=== PATIENT | female | born 1985 | race Two or more races ===

== ENCOUNTER → 2019-07-26 | Outpatient (CLI) | payer OTHER ==
[~2019-07-26] MED LIST: DOCU-131 PO; IBUP-1223 PO
== END | disposition home or self-care (01) ==
LOC: CVU 06:55
PROVIDERS: ATTEND Internal Medicine Cardiovascular Disease
DX: R07.89 Other chest pain (principal); R42 Dizziness and giddiness
CPT/HCPCS: 93306

== ENCOUNTER 2020-08-14 11:31 | Inpatient (IN) | payer OTHER ==
[~2020-08-14] VITALS: Ht 170.2 cm; Wt 72.6 kg
[2020-08-14] MEDS ORDERED: BETAMETHASONE 6 MG/ML, 5ML IM ONE (11:41)
[2020-08-14 11:56] LABS: BASOPHILS % (AUTO) 0 % (0-1); EOSINOPHILS % (AUTO) 1 % (1-7); LYMPHOCYTES % (AUTO) 10 % (22-44); MEAN CORPUSCULAR HEMOGLOBIN 34.1 pg (27.0-34.8); MEAN CORPUSCULAR HGB CONC 34.7 g/dL (32.4-35.8); MEAN PLATELET VOLUME 9.1 fL (7.4-10.4); MONOCYTES % (AUTO) 4 % (2-9); NEUTROPHILS % (AUTO) 86 % (42-75); PLATELET COUNT 224 x10^3/uL (130-400); RED BLOOD COUNT 3.94 x10^6/uL (3.82-5.3); RED CELL DISTRIBUTION WIDTH 12.7 % (9.6-15.2)
[2020-08-14 11:58] LABS: MD NO
[2020-08-14 12:08] LABS: ALBUMIN 2.7 g/dL (3.4-5.0); ANION GAP 7 mmol/L (5-15); CALCIUM 8.6 mg/dL (8.5-10.1); CHLORIDE 108 mmol/L (98-107)
[2020-08-14 12:12] LABS: ALANINE AMINOTRANSFERASE 18 U/L (12-78); ALKALINE PHOSPHATASE 90 U/L (45-117); BILIRUBIN,TOTAL 0.2 mg/dL (0.2-1.0); CREATININE 0.74 mg/dL (0.55-1.02); TOTAL PROTEIN 6.7 g/dL (6.4-8.2)
[2020-08-14] MEDS ORDERED: OXYTOCIN 30U/ 0.9% NaCL 500ML 500 ML IV ONE (13:30)
[2020-08-14] MEDS ORDERED: TERBUTALINE 1 MG/ML, 1ML IVPush PRN (13:30)
[2020-08-14] MEDS ORDERED: TERBUTALINE 1 MG/ML, 1ML SQ PRN (13:30)
[2020-08-14] MEDS: LACTATED RINGERS 1,000 ML IV SCH (13:40)
[2020-08-14] MEDS: BETAMETHASONE 6 MG/ML, 5ML IM SCH (13:40)
[2020-08-14] MEDS ORDERED: AMPICILLIN 2 GM in SODIUM CHLORIDE 0.9% 100 ML IVPB ONE (15:00)
[2020-08-14] MEDS: AZITHROMYCIN 500 MG in SODIUM CHLORIDE 0.9% 250 ML IV SCH (15:00)
[2020-08-14] MEDS: AMPICILLIN 2 GM in SODIUM CHLORIDE 0.9% 100 ML IV SCH (20:13)
[2020-08-15] MEDS ORDERED: MAGNESIUM SULF. PMX 20GM/500ML 500 ML IV ONE ×3 (00:50→20:27)
[2020-08-15] MEDS ORDERED: ONDANSETRON 2MG/ML, 2ML ONE (00:50)
[2020-08-15] MEDS ORDERED: MAGNESIUM SULFATE PMX 4GM/100M 100 ML ONE (00:50)
[2020-08-15] MEDS ORDERED: MAGNESIUM SULFATE PMX 4GM/100M 100 ML IVPB ONE (01:00)
[2020-08-15] MEDS: MAGNESIUM SULF. PMX 20GM/500ML 500 ML IV SCH ×3 (01:15→20:28)
[2020-08-15] MEDS ORDERED: ONDANSETRON 2MG/ML, 2ML IVPush PRN (01:30)
[2020-08-15] MEDS: AMPICILLIN 2 GM in SODIUM CHLORIDE 0.9% 100 ML IV SCH ×4 (01:59→20:22)
[2020-08-15] MEDS ORDERED: ACETAMINOPHEN 500 MG TABLET PO PRN (02:00)
[2020-08-15] MEDS: LACTATED RINGERS 1,000 ML IV SCH ×4 (08:11→21:30)
[2020-08-15] MEDS ORDERED: BETAMETHASONE 6 MG/ML, 5ML IM ONE (13:34)
[2020-08-15] MEDS: BETAMETHASONE 6 MG/ML, 5ML IM SCH (13:43)
[2020-08-15 15:22] LABS: TOTAL PROTEIN 24HR,URINE 325 mg/24hrs (0-149)
[2020-08-15 20:00] VITALS: BP 114/57
[2020-08-16] MEDS: AMPICILLIN 2 GM in SODIUM CHLORIDE 0.9% 100 ML IV SCH ×3 (02:30→19:32)
[2020-08-16] MEDS: MAGNESIUM SULF. PMX 20GM/500ML 500 ML IV SCH (04:56)
[2020-08-16] MEDS ORDERED: D5%-LACTATED RINGERS 500ML IVBOLUS ONE (07:00)
[2020-08-16] MEDS ORDERED: DOCUSATE 100 MG CAPSULE ONE (08:13)
[2020-08-16] MEDS: DOCUSATE 100 MG CAPSULE PO PRN ×2 (08:20→21:36)
[2020-08-16] MEDS ORDERED: SODIUM CITRATE/CITRIC ACID 15 ML UDC ONE (12:31)
[2020-08-16] MEDS ORDERED: NEWBORN KIT ONE (12:31)
[2020-08-16] MEDS ORDERED: METOCLOPRAMIDE 5 MG/ML, 2ML ONE (12:31)
[2020-08-16] MEDS: AZITHROMYCIN 500 MG in SODIUM CHLORIDE 0.9% 250 ML IV SCH (13:21)
[2020-08-16] MEDS ORDERED: OXYTOCIN 10 UNITS/ML, 1ML ONE (13:24)
[2020-08-16] MEDS ORDERED: CEFAZOLIN 1,000 MG ONE (13:24)
[2020-08-16] MEDS ORDERED: ONDANSETRON 2MG/ML, 2ML ONE (13:24)
[2020-08-16] MEDS ORDERED: FENTANYL PF 100 MCG/2ML ONE (13:24)
[2020-08-16] MEDS ORDERED: HYDROmorphone 2 MG/ML, 1ML ONE (13:24)
[2020-08-16] MEDS ORDERED: SODIUM CHLORIDE 0.9% PF 10ML ONE ×2 (13:25)
[2020-08-16] MEDS ORDERED: KETOROLAC 30 MG/1 ML ONE (13:28)
[2020-08-16] MEDS ORDERED: OXYTOCIN 30U/ 0.9% NaCL 500ML 500 ML ONE (15:17)
[2020-08-16] MEDS: LACTATED RINGERS 1,000 ML IV SCH ×3 (15:29→23:30)
[2020-08-16] MEDS ORDERED: MISOPROSTOL 200 MCG TABLET PR PRN (15:30)
[2020-08-16] MEDS ORDERED: OXYcodone IR 5MG TABLET PO PRN (15:30)
[2020-08-16] MEDS ORDERED: MORPHINE SULFATE 4 MG/ML, 1ML IVPush PRN (15:30)
[2020-08-16] MEDS ORDERED: DOCUSATE 100 MG CAPSULE PO PRN (15:30)
[2020-08-16] MEDS ORDERED: ONDANSETRON 2MG/ML, 2ML IV PRN (15:30)
[2020-08-16] MEDS: OXYTOCIN 30U/ 0.9% NaCL 500ML 500 ML IV SCH (15:30)
[2020-08-16] MEDS ORDERED: OXYcodone 5 MG/5 ML ORAL.SOL UDC ONE (16:45)
[2020-08-16] MEDS ORDERED: OXYcodone 5 MG/5 ML ORAL.SOL UDC PO PRN (17:00)
[2020-08-16 17:30] VITALS: BP 143/75
[2020-08-16] MEDS: KETOROLAC 30 MG/1 ML IV SCH (21:35)
[2020-08-16] MEDS: SIMETHICONE 80 MG CHEW TAB PO PRN (21:35)
[2020-08-16 22:15] VITALS: BP 126/77
[2020-08-16 23:23] LABS: BASOPHILS % (AUTO) 0 % (0-1); EOSINOPHILS % (AUTO) 0 % (1-7); LYMPHOCYTES % (AUTO) 9 % (22-44); MEAN CORPUSCULAR HEMOGLOBIN 34.1 pg (27.0-34.8); MEAN CORPUSCULAR HGB CONC 34.4 g/dL (32.4-35.8); MEAN PLATELET VOLUME 9.3 fL (7.4-10.4); MONOCYTES % (AUTO) 6 % (2-9); NEUTROPHILS % (AUTO) 84 % (42-75); PLATELET COUNT 202 x10^3/uL (130-400); RED BLOOD COUNT 3.39 x10^6/uL (3.82-5.3)
[2020-08-16 23:59] LABS: MD SCAN
[2020-08-17] MEDS: OXYcodone/APAP 5/325MG TABLET PO PRN ×2 (01:48→06:10)
[2020-08-17] MEDS: LACTATED RINGERS 1,000 ML IV SCH ×6 (01:48→23:30)
[2020-08-17] MEDS: OXYTOCIN 30U/ 0.9% NaCL 500ML 500 ML IV SCH ×3 (01:49→21:30)
[2020-08-17] MEDS: KETOROLAC 30 MG/1 ML IV SCH ×4 (03:14→22:04)
[2020-08-17 03:15] VITALS: BP 127/78
[2020-08-17] MEDS: SIMETHICONE 80 MG CHEW TAB PO PRN ×3 (06:10→22:04)
[2020-08-17 09:15] VITALS: BP 118/74
[2020-08-17] MEDS: PRENATAL VIT/IRON/FA 1 EACH TABLET PO SCH (09:15)
[2020-08-17] MEDS: DOCUSATE 100 MG CAPSULE PO PRN (09:16)
[2020-08-17 16:00] VITALS: BP 118/78
[2020-08-17 20:40] VITALS: BP 129/84
[2020-08-17] MEDS: ACETAMINOPHEN 325 MG TABLET PO PRN (20:49)
[2020-08-18] MEDS: ACETAMINOPHEN 325 MG TABLET PO PRN (04:05)
[2020-08-18] MEDS: KETOROLAC 30 MG/1 ML IV SCH ×2 (04:05→09:50)
[2020-08-18] MEDS: OXYTOCIN 30U/ 0.9% NaCL 500ML 500 ML IV SCH (07:30)
[2020-08-18] MEDS: LACTATED RINGERS 1,000 ML IV SCH ×2 (07:30)
[2020-08-18] MEDS: PRENATAL VIT/IRON/FA 1 EACH TABLET PO SCH (09:49)
[2020-08-18] MEDS: DOCUSATE 100 MG CAPSULE PO PRN (09:49)
[2020-08-18] MEDS: SIMETHICONE 80 MG CHEW TAB PO PRN (09:50)
[2020-08-18 10:00] VITALS: BP 124/76
[2020-08-18] MEDS ORDERED: OXYC1TAB14 PO (10:27)
[2020-08-18] MEDS ORDERED: IBUPROFEN 600 MG TABLET PO PRN (15:30)
== END 2020-08-18 10:50 | disposition home or self-care (01) | DRG 787 ==
LOC: LDOP 11:31 → LDIP 13:35 → 2NW 08-16 18:29
PROVIDERS: ADMIT Obstetrics & Gynecology; ATTEND Obstetrics & Gynecology
PROC: 10D00Z1 Extraction of Products of Conception, Low, Open Approach (ICD-10-PCS; principal; 2020-08-16)
DX: O13.4 Gestational [pregnancy-induced] hypertension without significant proteinuria, complicating childbirth (principal); O41.02X0 Oligohydramnios, second trimester, not applicable or unspecified; O76 Abnormality in fetal heart rate and rhythm complicating labor and delivery; O42.912 Preterm premature rupture of membranes, unspecified as to length of time between rupture and onset of labor, second trimester; Z20.822 Contact with and (suspected) exposure to COVID-19; O36.5920 Maternal care for other known or suspected poor fetal growth, second trimester, not applicable or unspecified; Z3A.25 25 weeks gestation of pregnancy; Z37.0 Single live birth; Z82.49 Family history of ischemic heart disease and other diseases of the circulatory system
CPT/HCPCS: 36415; J7121; 76815; 80053; 82570; 83735; 84112; 84156; 84550; 85025; 86592; 86850; 86900; 87081; 87635; 88305; 89060; G0378; J0290; J0456; J0690; J0702; J1170; J1885; J2405; J3010; J2590; J3475; J7050; J7120; Q0114